=== PATIENT | male | born 1985 | race Caucasian/White ===

== ENCOUNTER 2021-03-08 18:50 | Emergency (ER) | payer MEDICAID ==
[~2021-03-08] VITALS: Ht 167.6 cm; Wt 88.0 kg
[2021-03-08 19:13] VITALS: BP 146/76
--- NOTE | 2021-03-08 20:31 | NUR ---
STREP SWAB COLLECTED AND GIVEN TO PHLEB IN ER
[2021-03-08] MEDS ORDERED: DEXAMETHASONE 4 MG/ML VIAL IVP ONE (22:20)
[2021-03-08] MEDS ORDERED: ceFAZolin 1,000 MG VIAL ONE (22:33)
[2021-03-08] MEDS ORDERED: DEXA4TAB5 PO (23:20)
[2021-03-08] MEDS ORDERED: AMOX-1000 PO (23:20)
[2021-03-08 23:28] VITALS: BP 146/76
--- NOTE | 2021-03-08 23:28 | NUR ---
Patient discharged with v/s stable. Written and verbal after care instructions given and explained. Patient verbalized understanding. Ambulatory with steady gait. All questions addressed prior to discharge. Advised to follow up with PMD.
--- NOTE | 2021-03-10 08:10 | NUR ---
LATE ENTRY--ANCEF IVPB DISCONTINUED AT 2328.
== END 2021-03-08 23:28 | disposition home or self-care (01) ==
LOC: MED 18:50
DX: J03.90 Acute tonsillitis, unspecified (principal)
CPT/HCPCS: 70490; 87081; 96374; 96375; 99284; J0690; J1100